=== PATIENT | male | born 1960 | race Caucasian/White ===

== ENCOUNTER 2020-10-05 15:38 | Emergency (ER) | payer SELFPAY ==
[2020-10-05 15:39] VITALS: BP 136/90; PULSE 60; RESP 14; TEMP 36.2; O2SAT 97; BMI 25.1
--- NOTE | 2020-10-05 16:24 | [facility].EDUTC ---
[facility] [place] Clinical Impression: Puncture wound of right upper extremity, Need for Tdap vaccination Disposition: Home, Self-Care Condition on Discharge: Good Instructions: DI for Puncture Wound, Tetanus, Diphtheria, Pertussis (Tdap) Vaccine Additional Instructions: Keep the wounds clean and dry. Follow up with your regular doctor. Take the antibiotics as directed and apply the topical antibiotics as directed. Watch the wound for signs of worsening infection, such as swelling, worsening redness, drainage, etc. GO TO THE ER FOR ANY WORSENING SYMPTOMS Prescriptions: Mupirocin [Bactroban 2% Ointment 22gm tube] 1 applicatio TP TID 7 Days #1 tube Transmission Status: Received by [id number] cephALEXin [Keflex 500mg Cap] 500 mg PO Q6H 10 Days #40 cap Transmission Status: Received by [id number] Referrals: PCP,No [Primary Care Provider] - Time of Disposition: 16:34 Medical Decision Making - Medical Records Medical records reviewed: No: I reviewed the patient's medical records. - Juan Inquiry Pt receiving controlled substance: No Vital Signs: 10/05/20 15:39 10/05/20 16:56 Temperature 97.1 F L 97.1 F L Temperature Source Oral Oral Pulse Rate 60 Pulse Rate [Right] 60 Respiratory Rate 14 14 Blood Pressure 136/90 Blood Pressure [Right Arm] 136/90 Blood Pressure Mean [Right Arm] 105 02 Sat by Pulse Oximetry 97 Oxygen Delivery Method Room Air Room Air Orders (Tests/Meds): ED MEDICATIONS Discontinued Medications Generic Name Dose Route Start Last Admin Trade Name Lukasq PRN Reason Stop Dose Admin Tetanus/Reduced Diphtheria/Acell Pertussis 0.5 ml 10/05/20 16:29 10/05/20 16:33 Tet/Diphth/Pert-Adult 0.5ml Syringe IM 10/05/20 16:30 0.5 ml .ONCE ONE Administration [facility] [place] - General Stated complaint: Puncture dalila wire needs tetnus shot Time Seen by Provider: 10/05/20 16:24 Mode of Arrival: Ambulatory Source of Information: Patient Limitations: No Limitations Description of Symptoms (Recalled from Triage Doc. by RN): pt cut rt wrist on metal fencing HEENT Symptoms (Recalled from RN notes): No Resp Symptoms (Recalled from RN notes): No Skin Symptoms (Recalled from RN notes): No MS Symptoms (Recalled from RN notes): No Functional Status (Recalled from RN notes): wnl - History of Present Illness Provider Complaint: He states that he was working with barbed wire at home earlier today when it slipped and a sharp part poked his skin on his right wrist. He is unsure if his tetanus immunzation is up to date. - Related Data Previous Rx's Medication Instructions Recorded Mupirocin [Bactroban 2% Ointment 1 applicatio TP TID 7 Days #1 tube 10/05/20 22gm tube] cephALEXin [Keflex 500mg Cap] 500 mg PO Q6H 10 Days #40 cap 10/05/20 Allergies Allergy/AdvReac Type Severity Reaction Status Date / Time NO KNOWN ALLERGIES Allergy Unknown Uncoded 10/05/20 16:00 - Worker's Comp Is this a Worker's Comp case?: No Is this an H Worker's Comp?: No Is this a [place] Worker's Comp?: No [facility] History - Hepatitis A Screen Drug use history?: No High risk sexual behaviors?: No History of sexually transmitted infection?: No Currently employed?: No Childcare worker?: No Do you have indoor plumbing?: Yes Do you have electricity?: Yes Attestation statement:: This patient has been screened for Hepatitis A risk factors. I have reviewed the patient's past medical history: Yes ROS Obtained: Yes All systems reviewed & no additional complaints - Constitutional Constitutional: Reports system reviewed and no additional complaints, except as docu - Eyes Eyes: Reports system reviewed and no additional complaints, except as docu - ENT Ears, Nose, Mouth, and Throat: Reports system reviewed and no additional complaints, except as docu - Cardiovascular Cardiovascular: Reports system reviewed and no additional complaints, except as docu
[2020-10-05 16:56] VITALS: BP 136/90; PULSE 60; RESP 14; TEMP 36.2; O2SAT 97
== END 2020-10-05 16:57 | disposition home or self-care (01) ==
PROVIDERS: Emergency Provider Nurse Practitioner Family
DX: S61.531A Puncture wound without foreign body of right wrist, initial encounter (principal); W26.8XXA Contact with other sharp object(s), not elsewhere classified, initial encounter; Y92.73 Farm field as the place of occurrence of the external cause; Z23 Encounter for immunization
CPT/HCPCS: 90471; 90715; 99202; G0463